=== PATIENT | female | born 1990 | race Caucasian/White ===

== ENCOUNTER 2016-09-08 17:40 | Emergency (ER) | payer SELFPAY ==
[~2016-09-08] VITALS: Ht 154.9 cm; Wt 55.0 kg
[2016-09-08 18:05] VITALS: BP 116/52
== END 2016-09-09 02:16 | disposition left against medical advice (07) ==
LOC: ER 09-09 01:38
DX: R10.9 Unspecified abdominal pain (principal); Z98.890 Other specified postprocedural states